=== PATIENT | female | born 1955 | race Hispanic/Latino ===

== ENCOUNTER 2017-11-21 09:45 | Emergency (ER) | payer OTHER ==
[2017-11-21 11:24] LABS: Urine Blood NEGATIVE (NEG); Urine Glucose NEGATIVE (NEG); Urine Protein NEGATIVE (NEG)
--- NOTE | 2017-11-21 11:41 | RAD REPORT ---
EXAM DESCRIPTION: RAD - Chest Single View - 11/21/2017 11:35 am CLINICAL HISTORY: Chest pain. COMPARISON: 03/04/2015 FINDINGS: Portable technique limits examination quality. The lungs are grossly clear. The heart is normal in size. No displaced fractures. IMPRESSION: No acute intrathoracic process suspected.
[2017-11-21 11:47] LABS: Protime INR 0.95
[2017-11-21 11:54] LABS: Absolute Lymphocytes (CBC) 1.9 K/uL (0.7-4.9); Absolute Monocytes 0.5 K/uL (0.1-1.3); Absolute Neutrophil 6.9 K/uL (1.8-8.0); Basophils % 0.3 % (0-1.3); Eosinophils % 0.9 % (0-4.4); Hematocrit 42.9 % (36.0-45.0); Lymphocytes % 20.2 % (15.3-44.8); MCH 30.7 pg (27.0-35.0); MCV 92.4 fL (80-100); MPV 10.6 fL (7.6-11.3); Monocytes % 5.1 % (3.3-12.3); RBC Red Blood Cell Count 4.64 M/uL (3.86-4.86)
[2017-11-21] MEDS ORDERED: FENTANYL CITR 100 MCG/2 ML ONE (11:57)
[2017-11-21] MEDS ORDERED: ONDANSETRON 4 MG/2 ML VIAL ONE (11:57)
[2017-11-21] MEDS ORDERED: NA CHLORIDE 0.9% 1,000 ML ONE (11:57)
[2017-11-21] MEDS ORDERED: CEFTRIAXONE/SWI 1gm 1 GM/10 ML SYR ONE (12:03)
[2017-11-21] MEDS ORDERED: FAMOTIDINE 20 MG/2 ML VIAL IV ONE (12:03)
[2017-11-21 12:06] LABS: Bicarbonate 27 mEq/L (21-31); Glucose Level 165 mg/dL (65-120); Potassium 4.2 mEq/L (3.6-5.0); Sodium Level 136 mEq/L (135-145)
[2017-11-21 12:08] LABS: ALT/SGPT 53 IU/L (10-60); AST/SGOT 26 IU/L (10-42); Albumin 4.2 g/dL (3.2-5.5); BUN Blood Urea Nitrogen 14 mg/dL (6-20); Bilirubin Total 0.5 mg/dL (0.3-1.2); CKMB Creatine Kinase MB 0.9 ng/ml (0.3-4.0); Creatine Phosphokinase 25 IU/L (22-269); Glomerular Filtration Rate > 90 mL/min (=/>90); Magnesium 1.8 mg/dL (1.8-2.5); Protein, Total 7.5 g/dL (6.0-8.3)
[2017-11-21 12:12] LABS: Alkaline Phosphatase 103 IU/L (42-121); Bilirubin Direct 0.1 mg/dL (0-0.2)
--- NOTE | 2017-11-21 13:02 | RAD REPORT ---
EXAM DESCRIPTION: CTAbdomen Pelvis W Contrast - 11/21/2017 12:54 pm CLINICAL HISTORY: Abdominal pain. COMPARISON: 04/24/2017, 12/20/2015 TECHNIQUE: Biphasic CT imaging of the abdomen and pelvis was performed with 100 ml non-ionic IV cont rast. All CT scans are performed using dose optimization technique as appropriate and may include automated exposure control or mA/KV adjustment according to patient size. FINDINGS: The lung bases are clear.Cholecystectomy clips. Mild diffuse fatty liver is present. Cholecystectomy clips are seen. The spleen, pancreas, adrenal gl ands and right kidney are within normal limits. 5 mm calculus is present in the inferior left kidney without hydronephrosis. No bowel obstruction, free air, free fluid or abscess. The appendix is normal. No evidence of signi ficant lymphadenopathy. No suspicious bony findings. IMPRESSION: No acute intra-abdominal or pelvic finding. 5 mm nonobstructing left renal calculus. Fatty liver.
--- NOTE | 2017-11-21 13:59 | ER ---
Nurse's Notes [facility] Name: Darcy Centeno Age: 62 yrs Sex: Female : 1955 Arrival Date: 11/21/2017 Time: 09:47 Bed 14 Private MD: KARRIE MONTERO Diagnosis: Abdominal tenderness;Type 2 diabetes mellitus;Urinary tract infection, site not specified Presentation: 11/21 10:00 Presenting complaint: Patient states: went to see PCP, for a long standing abdominal hj pain, reports nausea and vomiting, denies diarrhea; PCP reports dehydration, tingling numbness of feet;. Transition of care: patient was received from another setting of care (ambulatory primary care physician practice). Onset of symptoms was November 21, 2017. Care prior to arrival: None. 10:00 Method Of Arrival: Ambulatory hj 10:00 Acuity: BRIAN 3 hj Triage Assessment: 10:04 General: Appears in no apparent distress. uncomfortable, Behavior is calm, cooperative, hj appropriate for age. Pain: Complains of pain in abdomen. Historical: - Allergies: 10:03 Hydrocodone-Acetaminophen; hj - Home Meds: 10:03 metformin 500 mg Oral tab 1 tab 2 times per day [Active]; Ambien 10 mg Oral tab 1 tab hj once daily [Active]; levothyroxine 50 mcg tab 1 tab once daily [Active]; - PMHx: 10:03 Diabetes - NIDDM; Hypothyroidism; hj - PSHx: 10:03 None; hj - Immunization history:: Adult Immunizations unknown. - Family history:: not pertinent. - Social history:: Smoking status: Patient/guardian denies using tobacco. Screenin:27 Abuse screen: Denies threats or abuse. Denies injuries from another. Nutritional wh screening: No deficits noted. Tuberculosis screening: No symptoms or risk factors identified. Fall Risk None identified. Assessment: 10:30 General: Appears in no apparent distress. uncomfortable, Behavior is calm, cooperative, wh appropriate for age. Pain: Complains of pain in right sided abdominal pain for a year now radiating to the back Pain radiates to back Pain began almost a year now. Neuro: Level of Consciousness is awake, alert, obeys commands, Oriented to person, place, time, situation, Hass[place] Maker are equal bilaterally. Cardiovascular: Denies chest pain, Heart tones S1 S2 Capillary refill < 3 seconds. Respiratory: Airway is patent Respiratory effort is even, unlabored, Respiratory pattern is regular, symmetrical, GI: Abdomen is round Bowel sounds present X 4 quads. Abd is soft Reports right sided abd pain been going on and off for a year. : No signs and/or symptoms were reported regarding the genitourinary system. EENT: No signs and/or symptoms were reported regarding the EENT system. Derm: Skin is intact, is healthy with good turgor, Skin is pink, warm \T\ dry. normal. Musculoskeletal: Range of motion: intact in all extremities. 11:30 Reassessment: Patient appears in no apparent distress at this time. Patient and/or wh family updated on plan of care and expected duration. Pain level reassessed. Patient is alert, oriented x 3, equal unlabored respirations, skin warm/dry/pink. 12:24 Reassessment: Patient appears in no apparent distress at this time. Patient and/or wh family updated on plan of care and expected duration. Pain level reassessed. Patient is alert, oriented x 3, equal unlabored respirations, skin warm/dry/pink. 13:42 Reassessment: Patient appears in no apparent distress at this time. Patient and/or wh family updated on plan of care and expected duration. Pain level reassessed. Patient is alert, oriented x 3, equal unlabored respirations, skin warm/dry/pink. Vital Signs: 10:04 BP 163 / 94; Pulse 71; Resp 18; Temp 98.1(TE); Pulse Ox 100% on R/A; Weight 88.9 kg; Height 5 ft. 6 in. (167.64 cm); Pain 10/10; 11:05 BP 135 / 69; Pulse 64; Resp 18; Pulse Ox 96% on R/A; wh 12:25 BP 176 / 63; Pulse 57; Resp 17; Pulse Ox 100% on R/A; 13:42 BP 129 / 71; Pulse 58; Resp 17; Pulse Ox 100% on R/A; 10:04 Body Mass Index 31.63 (88.90 kg, 167.64 cm) ED Course: 09:47 Patient arrived in ED. rg4 09:48 KARRIE MONTERO is Private Physician. rg4 10:02 Triage completed. 10:04 Arm band placed on right wrist. 10:08 Anish Yi is Primary Nurse. 10:10 Jayson Enriquez MD is Attending Physician. eric 10:20 Inserted saline lock: 20 gauge in right antecubital area, using aseptic technique. Blood collected. 11:33 X-ray completed. Portable x-ray completed in exam room. Patient tolerated procedure ag1 well. 11:35 XRAY Chest (1 view) In Process Unspecified. EDMS 12:19 EKG done, by actuarial technician. reviewed by Jayson Enriquez MD. at1 12:27 Patient has correct armband on for positive identification. Placed in gown. Bed in low wh position. Call light in reach. Side rails up X 1. nurse monitoring on. Pulse ox on. NIBP on. 12:55 CT Abd/Pelvis - W/Contrast In Process Unspecified. EDMS 13:59 KARRIE MONTERO is Referral Physician. eric 14:19 No provider procedures requiring assistance completed. IV discontinued, intact, bleeding controlled, No redness/swelling at site. Administered Medications: 11:42 Drug: NS 0.9% 1000 ml Route: IV; Rate: 1 bolus; Site: right antecubital; 12:51 Follow up: Response: No adverse reaction; IV Status: Completed infusion 11:46 Drug: Zofran 4 mg Route: IVP; Site: right antecubital; 12:50 Follow up: Response: No adverse reaction 11:46 Drug: Pepcid 20 mg Route: IVP; Site: right antecubital; 12:50 Follow up: Response: No adverse reaction 11:46 Drug: Rocephin - (cefTRIAXone) 1 grams {Note: Substituted with Rocephine 1 gm IVP.} Route: IVPB; Infused Over: 30 mins; Site: right antecubital; 12:49 Follow up: Response: No adverse reaction; IV Status: Completed infusion 11:47 Drug: fentaNYL (PF) 25 mcg Route: IVP; Site: right antecubital; 12:50 Follow up: Response: No adverse reaction Outcome: 13:59 Discharge ordered by . eric 14:19 Discharged to home ambulatory, with family. 14:19 Condition: improved 14:19 Discharge instructions given to patient, family, Instructed on discharge instructions, follow up and referral plans. medication usage, VIJAY ABd pain and UTI Demonstrated understanding of instructions, follow-up care, medications, POC Prescriptions given X 4. 14:20 Patient left the ED. Addendum: 11/24/2017 07:25 Addendum: Culture Results: Positive urine culture. No further action required. Bacteria c r4 sensitive to prescribed antibiotic. Signatures: Dispatcher [employer] EDMS Jayson Enriquez MD MD cha Ruiz, Claudia, RN RN cr4 Tawana fernandez, director of graduate admissions EKG Tat1 Susannah Lassiter 1 Rickey Light RN RN hj Garcia, Rubi 4 Anish Yi
--- NOTE | 2017-11-21 14:00 | EDPHYS ---
Physician Documentation [facility] Name: Darcy Centeno Age: 62 yrs Sex: Female : 1955 Arrival Date: 11/21/2017 Time: 09:47 Bed 14 Private MD: KARRIE MONTERO ED Physician Jayson Enriquez HPI: 11/21 11:35 This 62 yrs old Female presents to ER via Ambulatory with complaints of eric FATIGUE,NUMBNESS OF FEET,ABD PAIN. 11:35 The patient presents with abdominal pain. Onset: The symptoms/episode began/occurred 2 eric day(s) ago. The symptoms do not radiate. Associated signs and symptoms: none. Modifying factors: The symptoms are alleviated by nothing, the symptoms are aggravated by nothing. Severity of pain: At its worst the pain was mild moderate in the emergency department the pain is unchanged. The patient has not experienced similar symptoms in the past. Historical: - Allergies: 10:03 Hydrocodone-Acetaminophen; hj - Home Meds: 10:03 metformin 500 mg Oral tab 1 tab 2 times per day [Active]; Ambien 10 mg Oral tab 1 tab hj once daily [Active]; levothyroxine 50 mcg tab 1 tab once daily [Active]; - PMHx: 10:03 Diabetes - NIDDM; Hypothyroidism; hj - PSHx: 10:03 None; hj - Immunization history:: Adult Immunizations unknown. - Family history:: not pertinent. - Social history:: Smoking status: Patient/guardian denies using tobacco. ROS: 11:35 Constitutional: Negative for fever, chills, and weight loss, Eyes: Negative for injury, eric pain, redness, and discharge, ENT: Negative for injury, pain, and discharge, Neck: Negative for injury, pain, and swelling, Cardiovascular: Negative for chest pain, palpitations, and edema, Respiratory: Negative for shortness of breath, cough, wheezing, and pleuritic chest pain, Back: Negative for injury and pain, : Negative for injury, bleeding, discharge, and swelling, MS/Extremity: Negative for injury and deformity, Skin: Negative for injury, rash, and discoloration, Neuro: Negative for headache, weakness, numbness, tingling, and seizure, Psych: Negative for depression, anxiety, suicide ideation, homicidal ideation, and hallucinations, Allergy/Immunology: Negative for hives, rash, and allergies, Endocrine: Negative for neck swelling, polydipsia, polyuria, polyphagia, and marked weight changes, Hematologic/Lymphatic: Negative for swollen nodes, abnormal bleeding, and unusual bruising. 11:35 Abdomen/GI: Positive for abdominal pain, nausea and vomiting, of the umbilical area, right upper quadrant and left upper quadrant. Exam: 11:35 Constitutional: This is a well developed, well nourished patient who is awake, alert, eric and in no acute distress. Head/Face: Normocephalic, atraumatic. Eyes: Pupils equal round and reactive to light, extra-ocular motions intact. Lids and lashes normal. Conjunctiva and sclera are non-icteric and not injected. Cornea within normal limits. Periorbital areas with no swelling, redness, or edema. ENT: Nares patent. No nasal discharge, no septal abnormalities noted. Tympanic membranes are normal and external auditory canals are clear. Oropharynx with no redness, swelling, or masses, exudates, or evidence of obstruction, uvula midline. Mucous membranes moist. Neck: Trachea midline, no thyromegaly or masses palpated, and no cervical lymphadenopathy. Supple, full range of motion without nuchal rigidity, or vertebral point tenderness. No Meningismus. Chest/axilla: Normal chest wall appearance and motion. Nontender with no deformity. No lesions are appreciated. Cardiovascular: Regular rate and rhythm with a normal S1 and S2. No gallops, murmurs, or rubs. Normal PMI, no JVD. No pulse deficits. Respiratory: Lungs have equal breath sounds bilaterally, clear to auscultation and percussion. No rales, rhonchi or wheezes noted. No increased work of breathing, no retractions or nasal flaring. Back: No spinal tenderness. No costovertebral tenderness. Full range of motion. Female : Normal external genitalia. Skin: Warm, dry with normal turgor. Normal color with no rashes, no lesions, and no evidence of cellulitis. MS/ Extremity: Pulses equal, no cyanosis. Neurovascular intact. Full, normal range of motion. Neuro: Awake and alert, GCS 15, oriented to person, place, time, and situation. Cranial nerves II-XII grossly intact. Motor strength 5/5 in all extremities. Sensory grossly intact. Cerebellar exam normal. Normal gait. Psych: Awake, alert, with orientation to person, place and time. Behavior, mood, and affect are within normal limits. 11:35 Abdomen/GI: Inspection: abdomen appears normal, Bowel sounds: normal, Palpation: mild abdominal tenderness, in the umbilical area, right upper quadrant and left upper quadrant. Vital Signs: 10:04 BP 163 / 94; Pulse 71; Resp 18; Temp 98.1(TE); Pulse Ox 100% on R/A; Weight 88.9 kg; hj Height 5 ft. 6 in. (167.64 cm); Pain 10/; 11:05 BP 135 / 69; Pulse 64; Resp 18; Pulse Ox 96% on R/A; wh 12:25 BP 176 / 63; Pulse 57; Resp 17; Pulse Ox 100% on R/A; wh 13:42 BP 129 / 71; Pulse 58; Resp 17; Pulse Ox 100% on R/A; wh 10:04 Body Mass Index 31.63 (88.90 kg, 167.64 cm) MDM: 10:10 Patient medically screened. [facility] 11:35 Data reviewed: vital signs, nurses notes, lab test result(s), EKG, radiologic studies, [facility] CT scan, plain films. 11/21 10:56 Order name: Urine Dipstick--Ancillary (enter results); Complete Time: 11:34 11/21 10:56 Order name: Urine --Ancillary (enter results); Complete Time: 11:34 ag 11/21 11:22 Order name: Basic Metabolic Panel; Complete Time: 12: 11/21 11:23 Order name: BNP; Complete Time: 12:36 11/21 11:23 Order name: CBC with Diff; Complete Time: 12: 11/21 11:23 Order name: Ckmb; Complete Time: 12:13 11/21 11:23 Order name: CPK; Complete Time: 12: 11/21 11:23 Order name: LFT's; Complete Time: 12: 11/21 11:23 Order name: Magnesium; Complete Time: 12: 11/21 11:23 Order name: PT-INR; Complete Time: 12: 11/21 11:23 Order name: Ptt, Activated; Complete Time: 12: 11/21 11:23 Order name: Troponin (emerg Dept Use Only); Complete Time: 12:13 11/21 11:33 Order name: Lipase; Complete Time: 13:52 [facility] 11/21 11:34 Order name: Urine Culture [facility] 11/21 11:23 Order name: XRAY Chest (1 view); Complete Time: 12:13 11/21 11:23 Order name: EKG; Complete Time: 11:23 11/21 11:23 Order name: Cardiac monitoring; Complete Time: 11 11/21 11:23 Order name: EKG - Nurse/Tech; Complete Time: 12:51 11/21 11:23 Order name: IV Saline Lock; Complete Time: 11/21 11:23 Order name: Labs collected and sent; Complete Time: 11/21 11:23 Order name: O2 Per Protocol; Complete Time: 11: 11/21 11:23 Order name: O2 Sat Monitoring; Complete Time: 11: 11/21 11:23 Order name: Urine Dipstick-Ancillary (obtain specimen); Complete Time: 11 11/21 11:33 Order name: CT Abd/Pelvis - W/Contrast; Complete Time: 13:52 [facility] Administered Medications: 11:42 Drug: NS 0.9% 1000 ml Route: IV; Rate: 1 bolus; Site: right antecubital; 12:51 Follow up: Response: No adverse reaction; IV Status: Completed infusion 11:46 Drug: Zofran 4 mg Route: IVP; Site: right antecubital; 12:50 Follow up: Response: No adverse reaction 11:46 Drug: Pepcid 20 mg Route: IVP; Site: right antecubital; 12:50 Follow up: Response: No adverse reaction 11:46 Drug: Rocephin - (cefTRIAXone) 1 grams {Note: Substituted with Rocephine 1 gm IVP.} Route: IVPB; Infused Over: 30 mins; Site: right antecubital; 12:49 Follow up: Response: No adverse reaction; IV Status: Completed infusion 11:47 Drug: fentaNYL (PF) 25 mcg Route: IVP; Site: right antecubital; 12:50 Follow up: Response: No adverse reaction Disposition: 11/21/17 13:59 Discharged to Home. Impression: Abdominal tenderness, Type 2 diabetes mellitus, Urinary tract infection, site not specified. - Condition is Stable. - Discharge Instructions: Abdominal Pain, Adult, Type 2 Diabetes Mellitus, Adult, Urinary Tract Infection, Abdominal Pain, Adult, [id number], Diabetes Mellitus and Food, Type 2 Diabetes Mellitus, Adult, [id number]. - Prescriptions for Bentyl 20 mg Oral Tablet - take 1 tablet by ORAL route every 6 hours As needed; 20 tablet. Pepcid 20 mg Oral Tablet - take 1 tablet by ORAL route every 12 hours for 10 days; 20 tablet. Zofran 4 mg Oral Tablet - take 1 tablet by ORAL route every 12 hours As needed; 20 tablet. Cipro 250 mg Oral Tablet - take 1 tablet by ORAL route every 12 hours; 14 tablet. - Medication Reconciliation Form, Thank You Letter, Antibiotic Education, Prescription Opioid Use form. - Follow up: KARRIE MONTERO; When: 2 - 3 days; Reason: Recheck today's complaints, Continuance of care, Re-evaluation by your physician. Follow up: Private Physician; Reason: Recheck today's complaints, Continuance of care, Re-evaluation by your physician. - Problem is new. - Symptoms have improved. Signatures: Dispatcher [employer] Jayson Marie MD MD cha Joaquin, Henry, RN RN Anish Michelle
--- NOTE | 2017-11-21 16:41 | EKG ---
Test Date: 2017-11-21 Test Time: 12:10:16 Field Investigator: DIANE MEASUREMENT RESULTS: Intervals: Rate: 55 IA: 164 QRSD: 82 QT: 422 QTc: 403 [place]: P: 25 IA: 164 QRS: 33 T: 33 INTERPRETIVE STATEMENTS: Sinus bradycardia Otherwise normal ECG Compared to ECG 03/04/2015 13:06:28 Sinus rhythm no longer present Electronically Signed On 11-21-17 16:40:32 CDT by Yuniel Saleem
== END 2017-11-21 14:20 | disposition home or self-care (01) ==
LOC: ER 09:45
DX: N39.0 Urinary tract infection, site not specified (principal); E11.9 Type 2 diabetes mellitus without complications; E03.9 Hypothyroidism, unspecified; Z88.5 Allergy status to narcotic agent
CPT/HCPCS: 36415; 71045; 74177; 80048; 80076; 81003; 81025; 82550; 82553; 83690; 83735; 83880; 84484; 85025; 85610; 85730; 87077; 87086; 87088; 87186; 93005; 96361; 96365; 96375; 99285; J0696; J2405; J3010; J7030; Q9967